=== PATIENT | male | born 1995 | race Two or more races ===

== ENCOUNTER 2017-05-07 12:08 | Emergency (ER) | payer SELFPAY ==
[2017-05-07 13:08] VITALS: BP 139/84
[2017-05-07 13:23] LABS: ACETAMINOPHEN < 10 ug/mL (10-30)
--- NOTE | 2017-05-08 04:48 | ER ---
DATE SEEN: 05/07/2017 CHIEF COMPLAINT: Suicidal. HISTORY OF PRESENT ILLNESS: This 22-year-old was apprehended by the police at [place] this afternoon after the police received a call from the [place] [employer]. The [place] [employer] noted that he had transmitted a video call to his girlfriend threatening to kill himself. He had cut his right wrist. He has been depressed for the last 3 weeks. She has left him. He has been more depressed today. When asked what happened, he said "I am in a dark space." When I asked what he meant by that, he said "I don"t know." The patient is a concrete polisher, smokes occasionally, drinks occasional alcohol and does not use illicit drugs. No previous history of psychiatric care or pseudo- suicidal gesture. Please note when they arrived, he fled. They had to tase him twice after he left. He is now cooperative. SIGECAPS: S: Suicidal, he denies. I: He feels loss of interest and helpless and hopeless. G: Guilty, he said "I am not sure what you means by that, but I do not feel good about myself". E: Energy, decreased. C: Concentration, "fair". A: Anxiety, increased. Anorexia, no. Anhedonia, no. S: Suicidal, he said "I do not know." The patient is not homicidal. The patient is not psychotic, does not hear things that do not exist. No hallucinations or delusions. ALLERGIES: None. MEDICATIONS: None. PREVIOUS SURGERY: None. SOCIAL HISTORY: Smokes occasionally, drinks occasionally, and works as a concrete polisher. He is homeless. REVIEW OF SYSTEMS: Negative except as noted above. PHYSICAL EXAMINATION: VITAL SIGNS: Blood pressure 139/84, heart rate 106, respirations 18, oxygen saturation 98%, temperature is 37.2 degrees centigrade. GENERAL: Well-muscled, slightly overweight man, who has a fair eye contact, but looks at the floor most of the time. HEENT: Hearing appropriate. PERRLA intact. Pharynx without abnormality. Gag in place. Uvula and tongue are midline. NECK: No bruits. No masses. No thyromegaly. LUNGS: Clear to auscultation without rales, rhonchi, or wheezes. HEART: S1, S2. No murmur. No sinus tachycardia. ABDOMEN: Soft. No guarding. No abdominal discomfort. EXTREMITIES: Without abnormality, except for right upper extremity superficial laceration of forearm. This was acute and happened this afternoon. LABORATORY FINDINGS: Urine drug screen is negative, acetaminophen and salicylates negative. Alcohol negative. Complete metabolic panel is normal except for potassium 3.1, BUN and creatinine ratio low at 8.3, glucose 118, creatinine 1.2, BUN is 10, sodium 139, chloride 105, CO2 of 23, trace elevation of blood protein, total protein 8.5. Mild elevation of AST and ALT. ASSESSMENT: Suicidal ideation. Very depressed. PLAN: The patient's status was discussed with Dr. Chamberlain at [facility]. The doctor has accepted the patient. The patient will be transferred by ambulance. The patient is placed on a hold. /[id number] KAYLA/MARIAA LIU
== END 2017-05-07 14:50 ==
LOC: FB.ED 12:08
DX: S51.811A Laceration without foreign body of right forearm, initial encounter (principal); F32.9 Major depressive disorder, single episode, unspecified; R45.851 Suicidal ideations; X78.9XXA Intentional self-harm by unspecified sharp object, initial encounter
CPT/HCPCS: 36415; 80053; 80305; 84443; 85027; 93005; 99285; G0480; 99284